=== PATIENT | female | born 1980 | race African-American/Black ===

== ENCOUNTER 2025-06-23 10:26 | Emergency (ER) | payer OTHER, SELFPAY ==
[2025-06-23 10:34] VITALS: BP 161/94
--- NOTE | 2025-06-23 11:04 | ED.GENMED ---
History of Present Illness
General
Chief Complaint: Cough
Source: patient
Exam Limitations: none
Time Seen by Provider: 06/23/25 10:52
History of Present Illness
History of Present Illness:
44-year-old female with history of hypertension presents with 5 to 6 days worth of significant chest congestion cough runny nose fever chills fatigue. She has coughing spells that make her dizzy. She denies any vomiting. She denies chest pain.
No other pains at this time
Phy Exam
Physical Exam
Physical Exam:
General: Well-appearing female no acute respiratory distress
HEENT normal cephalic atraumatic neck is supple
Heart: Regular rate and rhythm
Lungs: Coarse breath sounds throughout with productive during the exam
Skin is warm no rash
Course
Orders/Labs/Results
Orders:
Orders
06/23/25 11:03
Ipratropium/Albuterol Sulfate [Duoneb] 3 ml INH R NOW STA
CR Chest - 2 Views Urgent
Comment:
Reason For Exam: cough
06/23/25 11:18
COVID-19 Antigen Urgent
Source: Nasal Swab
Influenza A+B Rapid Molecular Urgent
TODD Source: Nasal Swab
Specimen Description:
Vital Signs
Initial and Last Documented VS:
Initial Vital Signs
Temp Pulse Resp BP Pulse Ox
98.4 F 104 18 161/94 99
06/23/25 10:34 06/23/25 10:34 06/23/25 10:34 06/23/25 10:34 06/23/25 10:34
Last Documented Vital Signs
Temp Pulse Resp BP Pulse Ox
98.4 F 104 18 161/94 99
06/23/25 10:34 06/23/25 10:34 06/23/25 10:34 06/23/25 10:34 06/23/25 11:05
MDM/Problems Addressed
Differential Diagnosis Includes:
Cough congestion. Consider viral illness such as COVID or flu pneumonia bronchitis. Will treat with DuoNeb test for COVID and flu and order chest x-ray.
*Pulse Oximetry
SaO2: 99
Oxygen Mode of Delivery: Room air
Patient hypoxic: no
*Critical Care Note
Total Time (30-74mins, 75-104mins- exclusive of procedures): Not Applicable
Update Note
Update Note:
Chest x-ray clear COVID and flu negative. Suspect acute bronchitis. Will continue prescribe inhaler and steroid. Patient concerned about secondary bacterial infection as she has had this in the past. Will cover with Zithromax.
ED Attending Note
-
Portions of this chart may have been created with voice recognition software.� Occasional wrong word or��sound alike� substitutions may have occurred due to the inherent limitations of voice recognition software.
Discharge Plan
Departure
Patient Disposition: Home (Routine Discharge)
Date of Disposition: 06/23/25
Time of Disposition: 13:14
Patient with high blood pressure during this ER visit?: No
Discharge Problem:
Acute bronchitis
Instructions: Acute Bronchitis, Adult (DC)
Prescriptions:
New
prednisone 20 mg tablet
40 mg PO DAILY 5 Days Qty: 10 0RF
azithromycin [Zithromax Z-Otis] 250 mg tablet
250 mg PO DAILY Qty: 6 0RF
albuterol sulfate 90 mcg/actuation aero powdr breath act w/sensor
1 inh inhalation Q6H PRN (Reason: shortness of breath or wheezing) Qty: 1 0RF
Referrals:
UNKNOWN - PT DOES,NOT KNOW [Family Provider]
Activity Restrictions/Additional Instructions:
Use inhaler and steroid as directed. Take antibiotic as directed. Return if worse otherwise follow-up with your doctor
Interventions
Interventions:
*Risk Screen - Suicide Last Done: 06/23/25 10:34
*General Assessment Last Done: 06/23/25 10:34
*Neglect/Abuse Screening Last Done: 06/23/25 10:34
ED- Pulmonary Assessment Last Done: 06/23/25 11:10
Discharge Date and Time
Print Language: GIBRALTARIAN
[2025-06-23] MEDS: DUONEB 3 ML INH (11:13)
[2025-06-23 11:40] LABS: COVID-19 Antigen Negative (Negative)
== END 2025-06-23 13:42 | disposition home or self-care (01) ==
LOC: EMR 10:26
PROVIDERS: Physician Assistant; EMERGENCY PHYSICIAN Student in an Organized Health Care Education/Training Program
DX: J20.9 Acute bronchitis, unspecified (principal); I10 Essential (primary) hypertension
CPT/HCPCS: 99284; 94640; 71046; 87502; 87811